=== PATIENT | male | born 1935 | race Two or more races ===

== ENCOUNTER 2020-03-21 07:32 | Emergency (ER) | payer OTHER ==
[~2020-03-21] VITALS: Ht 172.7 cm; Wt 83.9 kg
[~2020-03-21 07:32] MED LIST: ATENOLOL100 MG
[2020-03-21] MEDS ORDERED: HUMALOG100 UNIT/2 (07:47)
[2020-03-21] MEDS ORDERED: ATENOLOL25 GM (08:14)
[2020-03-21] MEDS ORDERED: [UNRECOGNIZED DRUG - REMARK] (08:15)
[2020-03-21] MEDS ORDERED: SIMVASTATIN5 MG (08:15)
== END 2020-03-21 11:32 | disposition home or self-care (01) ==
LOC: ER 07:32
DX: J44.1 Chronic obstructive pulmonary disease with (acute) exacerbation (principal)

== ENCOUNTER 2020-08-08 08:18 | Emergency (ER) | payer OTHER ==
[~2020-08-08] VITALS: Ht 177.8 cm; Wt 81.6 kg
[~2020-08-08 08:18] MED LIST changes: +ATENOLOL25 GM; +HUMALOG100 UNIT/2; +SIMVASTATIN5 MG; +[UNRECOGNIZED DRUG - REMARK]
[2020-08-08] MEDS ORDERED: TESSALON PERLE100 M1 PO (11:53)
[2020-08-08] MEDS ORDERED: SYMBICORT 16010.2 GM IH (11:53)
[2020-08-08] MEDS ORDERED: MUCINEX DM ER1 EAC1 PO (11:53)
[2020-08-08] MEDS ORDERED: PROMETH-CODEIN 65 ML PO (11:53)
== END 2020-08-08 12:14 | disposition home or self-care (01) ==
LOC: ER 08:18
DX: J44.1 Chronic obstructive pulmonary disease with (acute) exacerbation (principal); R05 Cough; Z03.818 Encounter for observation for suspected exposure to other biological agents ruled out

== ENCOUNTER 2021-03-24 07:53 | Emergency (ER) | payer OTHER ==
[~2021-03-24] VITALS: Ht 177.8 cm; Wt 81.6 kg
[~2021-03-24 07:53] MED LIST changes: +MUCINEX DM ER1 EAC1 PO; +PROMETH-CODEIN 65 ML PO; +SYMBICORT 16010.2 GM IH; +TESSALON PERLE100 M1 PO
[2021-03-24] MEDS ORDERED: TESSALON PERLE100 M1 PO (14:41)
[2021-03-24] MEDS ORDERED: LEVOFLOXACIN500 MG PO (14:41)
== END 2021-03-24 14:51 | disposition home or self-care (01) ==
LOC: ER 07:53
DX: R05 Cough (principal); R10.13 Epigastric pain; R53.81 Other malaise; Z03.818 Encounter for observation for suspected exposure to other biological agents ruled out